=== PATIENT | male | born 1965 | race Two or more races ===

== ENCOUNTER 2023-11-18 09:57 | Inpatient (IN) | payer OTHER ==
[2023-11-18 10:39] VITALS: BMI 36.6
[2023-11-18] MEDS ORDERED: BENZONATATE 200 MG CAPSULE PO PRN (11:24)
[2023-11-18] MEDS ORDERED: chlordiazePOXIDE HCL 25 MG CAPSULE PO PRN (11:24)
[2023-11-18] MEDS ORDERED: NALOXONE HCL (KLOXXADO) 8 MG SPRAY NS PRN (11:24)
[2023-11-18] MEDS ORDERED: IBUPROFEN 400 MG TABLET (FP) PO PRN (11:24)
[2023-11-18] MEDS ORDERED: IBUPROFEN 600 MG TABLET (FP) PO PRN (11:24)
[2023-11-18] MEDS ORDERED: MAG HYDROX/AL HYDROX/SIMETH 30 ML UNIT-DOSE CUP PO PRN (11:24)
[2023-11-18] MEDS ORDERED: BISMUTH SUBSALICYLATE 262 MG/15 ML BTL PO PRN (11:24)
[2023-11-18] MEDS ORDERED: guaiFENesin 600 MG TABLET.ER (FP) PO PRN (11:24)
[2023-11-18] MEDS ORDERED: hydrOXYzine PAMOATE 25 MG CAPSULE (FP) PO PRN (11:24)
[2023-11-18] MEDS ORDERED: METHOCARBAMOL 500 MG TABLET PO PRN (11:24)
[2023-11-18] MEDS ORDERED: BENZOCAINE/MENTHOL (CHLORASEPTIC ) LOZENGE MM PRN (11:24)
[2023-11-18] MEDS ORDERED: LOPERAMIDE HCL 2 MG CAPSULE PO PRN (11:24)
[2023-11-18] MEDS ORDERED: NALOXONE HCL 0.4 MG/ML VIAL IM PRN (11:24)
[2023-11-18] MEDS ORDERED: ACETAMINOPHEN 325 MG TABLET (FP) PO PRN (11:24)
[2023-11-18] MEDS: ONDANSETRON *ODT* 4 MG TABLET SL PRN (11:50)
[2023-11-18] MEDS: chlordiazePOXIDE HCL 25 MG CAPSULE PO SCH (17:20)
[2023-11-18] MEDS: MELATONIN 5 MG TABLETS PO SCH (22:30)
[2023-11-18] MEDS: THIAMINE HCL 100 MG TABLET (FP) PO SCH (22:30)
[2023-11-19] MEDS: PRENATAL VITAMINS W/ FOLIC ACID TABLET (FP) PO SCH (10:31)
[2023-11-19] MEDS: amLODIPine BESYLATE 5 MG TABLET (FP) PO SCH (10:32)
[2023-11-19] MEDS: GEMFIBROZIL 600 MG TABLET (FP) PO SCH (11:21)
[2023-11-19] MEDS: ALLOPURINOL 100 MG TABLET (FP) PO SCH (11:21)
[2023-11-19 11:39] LABS: HEMATOCRIT 37.5 % (35.4-49); HEMOGLOBIN 13.1 GM/dL (11.7-16.9); MCH 32.3 pg (25.7-33.7); MEAN CELL VOLUME 92.5 fl (80-96); MEAN PLT VOLUME 10.1 fl (7.5-11.1); PLATELET COUNT 93 10^3/uL (134-434); RBC 4.05 M/mm3 (4.00-5.60); RDW 14.1 % (11.9-15.9); WHITE BLOOD COUNT 5.5 K/mm3 (4.0-10.0)
[2023-11-19 12:50] LABS: CHLORIDE 102 mmol/L (98-107); POTASSIUM 3.6 mmol/L (3.5-5.1); SODIUM 137 mmol/L (136-145)
[2023-11-19 12:56] LABS: CALCIUM 9.6 mg/dL (8.5-10.1)
[2023-11-19 12:57] LABS: ALBUMIN 3.6 g/dl (3.4-5.0); ANION GAP 9 mmol/L (4-13); BLOOD UREA NITROGEN 13.1 mg/dL (7-18); CO2 27 mmol/L (21-32); GLUCOSE,RANDOM 125 mg/dL (74-106)
[2023-11-19 12:59] LABS: SGPT/ALT 30 U/L (13-61)
[2023-11-19 13:00] LABS: CREATININE 0.9 mg/dL (0.55-1.3); SGOT/AST 21 U/L (15-37)
[2023-11-19 13:01] LABS: BILIRUBIN,TOTAL 0.9 mg/dL (0.2-1); TOT PROT 7.8 g/dl (6.4-8.2)
[2023-11-19 13:02] LABS: ALK PHOS 61 U/L (45-117)
[2023-11-19] MEDS: INDOMETHACIN 25 MG CAPSULE PO SCH (15:24)
[2023-11-20] MEDS: chlordiazePOXIDE HCL 25 MG CAPSULE PO SCH (05:20)
[2023-11-20] MEDS: MAGNESIUM HYDROX 2400MG/30ML ORAL SUSPENSION 30 ML CUP PO PRN (10:19)
[2023-11-20] MEDS: POLYETHYLENE GLYCOL (HEALTHYLAX) 3350 17 GM PACKET PO PRN (14:24)
[2023-11-20] MEDS: DICYCLOMINE HCL 10 MG CAPSULE PO PRN (14:24)
[2023-11-21] MEDS ORDERED: chlordiazePOXIDE HCL 10 MG CAPSULE PO PRN
[2023-11-21] MEDS: chlordiazePOXIDE HCL 10 MG CAPSULE PO SCH (06:00)
[2023-11-22] MEDS: chlordiazePOXIDE HCL 10 MG CAPSULE PO SCH (05:29)
[2023-11-22 09:09] VITALS: RESP 18; TEMP 97.3
[2023-11-22 12:49] VITALS: BP 146/79; PULSE 74
[2023-11-23] MEDS ORDERED: chlordiazePOXIDE HCL 10 MG CAPSULE PO ONE (05:00)
== END 2023-11-22 15:59 | disposition home or self-care (01) | DRG 775 ==
LOC: YASAS 09:57 → Y6N 11:31
PROVIDERS: ADMIT Allergy & Immunology; ATTEND Surgery
PROC: HZ2ZZZZ Detoxification Services for Substance Abuse Treatment (ICD-10-PCS; principal; 2023-11-18)
DX: F10.230 Alcohol dependence with withdrawal, uncomplicated (principal); F32.A Depression, unspecified; E78.5 Hyperlipidemia, unspecified; I10 Essential (primary) hypertension; M10.9 Gout, unspecified
CPT/HCPCS: 36415; 80053; 80307; 83036; 85027; 86780; 93005; 93010; Q0162